=== PATIENT | female | born 1995 | race Caucasian/White ===

== ENCOUNTER 2025-07-27 16:23 | Emergency (ER) | payer OTHER ==
[~2025-07-27] VITALS: Ht 154.9 cm; Wt 49.9 kg
[2025-07-27 16:28] VITALS: BP 140/86
[2025-07-27] MEDS ORDERED: TDAP DIPH,PERTUSS,TET VAC/PF 0.5 ML DISP.SYRIN IM ONE (16:30)
[2025-07-27] MEDS: NEOMY/BACITRA/POLYMYXIN B OINT UD PACKET TP ONE (16:32)
[2025-07-27] MEDS: TDAP DIPH,PERTUSS,TET VAC/PF 0.5 ML DISP.SYRIN IM ONE (16:35)
[2025-07-27] MEDS ORDERED: NEOMY/BACITRA/POLYMYXIN B OINT UD PACKET TP ONE (16:36)
[2025-07-27 16:45] VITALS: BP 140/86; TEMP 98.7; O2SAT 97
== END 2025-07-27 16:46 | disposition home or self-care (01) ==
LOC: ER 16:45
DX: S00.31XA Abrasion of nose, initial encounter (principal); Z88.6 Allergy status to analgesic agent; X58.XXXA Exposure to other specified factors, initial encounter; Y93.89 Activity, other specified; Y92.89 Other specified places as the place of occurrence of the external cause; Y99.8 Other external cause status
CPT/HCPCS: 90715; A4606; A4663

== ENCOUNTER 2025-09-27 15:27 | Emergency (ER) | payer BC, OTHER ==
[~2025-09-27] VITALS: Ht 152.4 cm; Wt 54.4 kg
[2025-09-27 15:31] VITALS: BP 146/101; O2SAT 97
[2025-09-27] MEDS ORDERED: ONDA-243 PO (15:43)
[2025-09-27] MEDS ORDERED: ONDANSETRON ODT 4 MG TAB.RAPDIS ONE (15:43)
[2025-09-27] MEDS: ONDANSETRON ODT 4 MG TAB.RAPDIS SL ONE (15:45)
== END 2025-09-27 15:55 | disposition home or self-care (01) ==
LOC: ER 15:27
DX: R11.2 Nausea with vomiting, unspecified (principal); A08.4 Viral intestinal infection, unspecified; E86.0 Dehydration; Z88.6 Allergy status to analgesic agent
CPT/HCPCS: A4606; A4663; Q0162